=== PATIENT | male | born 1985 | race Caucasian/White ===

== ENCOUNTER 2017-10-24 09:56 | Emergency (ER) | payer SELFPAY ==
[2017-10-24 09:57] VITALS: BP 117/82; PULSE 85; RESP 17; TEMP 37.2; O2SAT 99; BMI 20.7
[2017-10-24 10:00] VITALS: O2SAT 100
--- NOTE | 2017-10-24 10:08 | RAD_ITS ---
STUDY: X-RAY - THORACIC SPINE REASON FOR EXAM: Male, 32 years old. Back pain due to a fall. TECHNIQUE: 3 view(s) of the thoracic spine were obtained. COMPARISON: None. FINDINGS: Normal kyphosis of the thoracic spine. There is no substantial scoliosis. Schmorl's nodes in the lower dorsal spine. Normal disc space heights. The soft tissue structures are unremarkable. RAD/Thoracic Spine 2 Views IMPRESSION: Schmorl's nodes in the lower dorsal spine. Electronically Signed: Frank Villa MD at 10:54 EST Tel [phone], Service support ,
[2017-10-24] MEDS: HYDROcodone Bitartrate/Apap 5/325 Tablet PO (10:15)
--- NOTE | 2017-10-24 10:25 | ED.VISSUMM ---
- ER Visit Summary Date of Service: 10/24/17 Chief Complaint: Fall, back pain History of Present Illness: The patient is a 32 M who presents after a fall. He fell off of a ladder approximately 10 feet yesterday. He states he broke his fall on the way down. But he landed on his back. He has pain in the left lower thoracic area. He denies loss of consciousness. He did not hit his head. He complains of pain in the left thoracic area. He has a previous back fracture in 2005. He took Tylenol without any relief. Physical Examination: Vital signs reviewed. HEENT exam reveals no trauma. Heart is regular. Lungs are clear. Abdomen is soft. Back exam reveals paraspinal and some mild tenderness in the lower thoracic area. There is no lumbar or cervical tenderness. His GCS is 15. Neurologic exam normal Test Results: Thoracic x-ray reveals Schmorl's nodes but no acute fractures Emergency Department Course and Treatment: Patient was treated with [place] here Treatment Plan: I will give the patient naproxen and Flexeril for home. He will keep ice on any areas that are sore. He will follow-up with his PCP Disposition: Discharge Impression: Thoracic contusion This note was generated with [employer] dictation software. It may contain incorrect words, spelling, and punctuation that were not noted in review of the chart prior to signing ED Disposition - Plan for ED Patient: Chief Complaint: Fall Referrals: Care Physician,No Primary [Primary Care Provider] -
--- NOTE | 2017-10-24 11:00 | ED.DEP ---
ED Disposition - Plan for ED Patient: Disposition: Home or Assisted Living Chief Complaint: Fall Instructions: ED Contusion Back Prescriptions: Naproxen [Naprosyn] 500 mg PO BID PRN #20 tab Cyclobenzaprine [Flexeril] 10 mg PO TID PRN #20 tab PRN Reason: Muscle Spasm Referrals: Care Physician,No Primary [Primary Care Provider] -
[2017-10-24 11:49] VITALS: BP 101/64; PULSE 72; RESP 16; O2SAT 98
== END 2017-10-24 11:50 | disposition home or self-care (01) ==
PROVIDERS: Emergency Provider Emergency Medicine
DX: S30.0XXA Contusion of lower back and pelvis, initial encounter (principal); W11.XXXA Fall on and from ladder, initial encounter; Y93.9 Activity, unspecified; Y92.9 Unspecified place or not applicable; Z72.0 Tobacco use
CPT/HCPCS: 72070; 99283

== ENCOUNTER 2023-09-18 11:25 | Emergency (ER) | payer MEDICAID, SELFPAY ==
[2023-09-18 11:27] VITALS: BP 120/88; PULSE 103; RESP 14; TEMP 38.8; O2SAT 96; BMI 24.2
--- NOTE | 2023-09-18 11:40 | MRI_ITS ---
STUDY: MRI LUMBAR SPINE WITHOUT CONTRAST REASON FOR EXAM: Male, 38 years old. Back pain w/ saddle anesthesia, rectal incontinence TECHNIQUE: Standardized fat and water weighted pulse sequences were obtained in the sagittal and axial planes. Noncontrast images obtained. Contrast: No contrast administered COMPARISON: None FINDINGS: Vertebral bodies and alignment. 1. Vertebral body height and alignment are maintained. No evidence of marrow edema or occult fracture. 2. Paraspinous soft tissue planes have normal appearance. Normal appearance of the muscular fascial planes of the erector spinae. 3. Normal appearance of the sacrum and sacroiliac joints. Intervertebral disks levels. T12-L1: Normal endplates. Normal disc height, hydration and morphology. Normal bilateral facet joints. Normal central canal and bilateral lateral recesses. Normal bilateral intervertebral neural foramina. L1-2: Normal endplates. Normal disc height, hydration and morphology. Normal bilateral facet joints. Normal central canal and bilateral lateral recesses. Normal bilateral intervertebral neural foramina. L2-3: Normal endplates. Normal disc height, hydration and morphology. Normal bilateral facet joints. Normal central canal and bilateral lateral recesses. Normal bilateral intervertebral neural foramina. L3-4: Normal endplates. Normal disc height, hydration and morphology. Normal bilateral facet joints. Normal central canal and bilateral lateral recesses. Normal bilateral intervertebral neural foramina. L4-5: Normal endplates. Normal disc height, hydration and morphology. There is mild facet hypertrophic change. Normal central canal and bilateral lateral recesses. Normal bilateral intervertebral neural foramina. L5-S1: Disc desiccation, mild loss of disc height. Broad-based posterior disc bulge with mild asymmetry greater on the RIGHT than LEFT with associated RIGHT annular tear. Small contained a RIGHT foraminal bulge/borderline protrusion without brandy nerve root impingement. Spinal cord: Normal appearance of the spinal cord and conus. Conus is located at L1. Cauda equina has normal appearance. No evidence of cord compression or edema. No intramedullary signal abnormality noted. MRI/Spine Lumbar (Routine) IMPRESSION: 1. There is desiccation and mild asymmetric RIGHT posterior lateral disc bulge/borderline protrusion and annular tear extending into the RIGHT neural foramen. No evidence canal stenosis or brandy nerve root impingement. 2. Remaining disc spaces are maintained. No canal stenosis, no cord or nerve root impingement. 3. Mild multilevel facet hypertrophic changes. 4. Normal appearance the spinal cord and conus. Electronically Signed: Bigg Mukherjee MD at 17:33 EST ,
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
[2023-09-18] MEDS: Acetaminophen 500 MG Tablet 1000 MG PO (11:51)
[2023-09-18 12:18] LABS: Absolute Lymphocyte Count 3.27 X10^3/uL (0.83-4.51); Absolute Neutrophil Count 3.1 X10^3/uL (2.0-7.7); Basophil# 0.02 X10^3/uL; Basophil% 0.3 % (0-1); Eosinophil# 0.16 X10^3/uL; Eosinophils% 2.3 % (0-5); Hematocrit 42.1 % (40-54); Lymphocyte # 3.27 X10^3/ul (0.83-4.51); Lymphocyte % 46.3 % (19-41); Mean Corp Hgb Conc 33.3 g/dL (32-36); Mean Corpuscular Hgb 32.4 pg (27.0-32.0); Mean Corpuscular Volume 97.5 fL (80-94); Mean Platelet Vol. 9.6 fl (6.2-12.0); Monocyte# 0.54 X10^3/uL; Monocyte% 7.6 % (0-10); NRBC Flagged by Analyzer 0 % (0-5); Neutrophil # 3.07 X10^3/uL (2.7-7.7); Neutrophil % 43.5 % (47-70); Platelet Count 270 K/mm3 (150-450); RBC Distribution Width CV 11.7 % (11.6-14.6); RBC Distribution Width SD 42.5 fl (35.1-43.9); Red Blood Count 4.32 M/mm3 (4.6-6.2); White Blood Count 7.1 K/mm3 (4.4-11.0)
[2023-09-18 12:19] LABS: Erythrocyte Sedimentation Rate 18 mm/hr (0-20)
[2023-09-18 12:43] LABS: Anion Gap 3 (5-15); BUN 22 mg/dL (7-18); BUN/Creat Ratio 17.6 RATIO (10-20); CRP < 2.90 mg/L (0.0-3.0); Calcium,Total 9.4 mg/dL (8.5-10.1); Chloride 103 mmol/L (98-107); Creatinine, Serum 1.25 mg/dL (0.70-1.30); EST Glomerular Filtration Rate 69 mL/min (>60); Est Glom Filt Rate - Afr Amer 83 mL/min (>60); Estimated Creatinine Clearance 70.38 ml/min; Glucose 80 mg/dL (74-106); Potassium 3.7 mmol/L (3.5-5.1); Sodium Level 139 mmol/L (136-145)
--- OUTSIDE RECORDS SUMMARY | 2023-09-18 12:48 | XMS RPT_ITS | CCD ---
Author Name Unknown Address [address] [place] [id number] Organization [facility] Care Team Providers Care Apiarist Name Role Phone Unavailable Primary Care Provider SUNI Linton Attending Unavailable Medications Completed/Discontinued Medications Medication Drug Class(es) Dates Sig (Normalized) Sig (Original) bictegravir 50 mg / emtricitabine 200 mg / tenofovir alafenamide 25 mg oral tablet (6 sources) Human Immunodeficiency Virus Nucleoside Analog Reverse Transcriptase Inhibitor Start: 05-11-2023 BIKTARVY 50-200-25 mg per tablet cefTRIAXone 500 mg injection (2 sources) Cephalosporin Antibacterial Start: 08-20-2023 End: 08-20-2023 cefTRIAXone 500 mg intramuscular injection (ROCEPHIN) Problems Problem Classification Problem Date Documented Da te Episodic/Chronic Genitourinary symptoms and ill-defined conditions (3 sources) Discharge from penis; Translations: [Urethral discharge, unspecified] Onset: 3 05-13-2023 Episodic HIV infection (2 sources) Asymptomatic human immunodeficiency virus [HIV] infection status; Translations: [HIV infection, asymptomatic (HCC)] Onset: 3 Chronic Immunizations and screening for infectious disease (4 sources) Patient encounter status; Translations: [Encounter for screening for infections with a predominantly sexual mode of transmission] Onset: 3 08-20-2023 Episodic Other gastrointestinal disorders (1 source) Mucus in stool; Translations: [Other fecal abnormalities] 08-20-2023 Episodic Other gastrointestinal disorders (1 source) Other fecal abnormalities; Translations: [Mucus in stool] Onset: 3 Episodic Substance-related disorders (1 source) Other stimulant abuse, uncomplicated; 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, continuous (HCC)] Onset: 3 Chronic Results Test Name Value Interpretation Reference Range Facil ity Vital Signs Date Time Vital Sign Value Performing Clinician Maddi giles 08-20-2023 14:00-0500 Body temperature 97.39 [degF] Suni Ball JIG AND FIXTURE BUILDER APPRENTICE.MOLD CLEANER Work Phone: [facility] 08-20-2023 14:00-0500 Body weight 68.27 kg Suni Ball JIG AND FIXTURE BUILDER APPRENTICE.MOLD CLEANER Work Phone: [facility] 08-20-2023 14:00-0500 Diastolic blood pressure 74 mm[Hg] Suni Ball JIG AND FIXTURE BUILDER APPRENTICE.MOLD CLEANER Work Phone: [facility] 08-20-2023 14:00-0500 Heart rate 107 /min Suni Ball JIG AND FIXTURE BUILDER APPRENTICE.MOLD CLEANER Work Phone: [facility] 08-20-2023 14:00-0500 SaO2% (BldA) [Mass fraction] 97 % Suni Ball JIG AND FIXTURE BUILDER APPRENTICE.MOLD CLEANER Work Phone: [facility] 08-20-2023 14:00-0500 Systolic blood pressure 116 mm[Hg] Suni Ball JIG AND FIXTURE BUILDER APPRENTICE.MOLD CLEANER Work Phone: [facility] 05-13-2023 12:48-0400 Body temperature 97.9 [degF] Lexx Pendlebury JIG AND FIXTURE BUILDER APPRENTICE.MOLD CLEANER Work Phone: [facility] 05-13-2023 12:48-0400 Body weight 64.86 kg Lexx Gallo JIG AND FIXTURE BUILDER APPRENTICE.MOLD CLEANER Work Phone: [facility] 05-13-2023 12:48-0400 Diastolic blood pressure 80 mm[Hg] Lexx [place] JIG AND FIXTURE BUILDER APPRENTICE.MOLD CLEANER Work Phone: [facility] 05-13-2023 12:48-0400 Heart rate 114 /min Lexx Sabino JIG AND FIXTURE BUILDER APPRENTICE.MOLD CLEANER Work Phone: [facility] 05-13-2023 12:48-0400 Respiratory rate 16 /min Lexx [place] JIG AND FIXTURE BUILDER APPRENTICE.MOLD CLEANER Work Phone: [facility] 05-13-2023 12:48-0400 SaO2% (BldA) [Mass fraction] 98 % Lexx Gallo JIG AND FIXTURE BUILDER APPRENTICE.MOLD CLEANER Work Phone: [facility] 05-13-2023 12:48-0400 Systolic blood pressure 110 mm[Hg] Lexx Gallo APRN.CNP Work Phone: [facility] Encounters Encounter Date Encounter Type Care Provider Facility Start: 09-06-2023 Telephone encounter Suni Pino walker APRN.CNP Work Phone: [facility] Procedures Date Procedure Procedure Detail Performing Clinician Start: 08-20-2023 Urnls dip stick/tabl et rgnt auto w/o microscopy [facility] Provider Start: 05-13-2023 Urnls dip stick/tabl et rgnt auto w/o microscopy [facility] Provider Plan of Treatment Date Care Activity Detail Author Start: 08-20-2023 End: 11-19-2023 Hepatitis B virus surface Ag [Presence] in Serum HEP B SURF AG SCRN Lab Routine Screening for STD (sexually transmitted disease) Expected: 08/20/2023, Expires: 11/19/2023 [facility] Work Phone: Payers Date Payer Category Payer Unknown PENDING 2023 Medicaid [employer] [place] [id number] 2023-Present [phone] [place] [address] Medicaid [id number] 2023 Unknown [id number] Social History Date Type Detail Facility [facility] unknown [facility] Start: 1985 Sex Assigned At Not on file [facility] Start: 05-13-2023 End: 08-20-2023 Gender identity Not on file [facility] Start: 05-13-2023 [facility] daily [facility] History of tobacco use Cigarette Smoker [facility] Start: 05-13-2023 End: 08-20-2023 Cigarettes smoked current (pack per day) - Reported 0.3 [facility] Start: 05-13-2023 Tobacco use and exposure Smoke less tobacco non-user [facility] Clinical Notes 04-02-2023 to 09-06-2023 Telephone Encounter - Suni Heath APRN.CNP - 09/06/2023 9:13 AM ESTTelephone Encounter - Mikki Carroll - 09/06/2023 9:00 AM ESTTelephone Encounter - Magaly Corrales APRN.CNP - 08/21/2023 5:42 PM EST Note Date & Type Note Facility 09-06-2023 Miscellaneous Notes Spoke with health dept. Notified them info has been fwd to patients ID doc. Health Dept has spoke to patient who denied any symptoms or concerns. Confirmed with HD number on file is patients correct [phone]. Pt to follow up with Dr West Cole ID at [facility]. Suni Heath APRN.CNP [place], with the [facility] Dept, stated they got patient's lab results for IGG, IGM and RPR. Said results typically require further testing and wants to know if any further testing was ordered. Please call him at [phone]. documented in this encounter [facility] 08-30-2023 Miscellaneous Notes Phone number in chart not working. Letter sent to patient to call office for test results. Also attempted to notify patients ID . Will fax results over to [phone] Suni Heath APRN.CNP documented in this encounter [facility] 08-21-2023 Miscellaneous Notes Birthday verified with patient over the phone. Aware of the below information with all questions answered. Negative gonorrhea and chlamydia. Patient is upset that he is not positive for gonorrhea, states this is concerning! Patient was hoping to be positive as he was having symptoms. Advised to make a follow up with primary care and urology as he needs more of a workup than what is offered in [facility]. documented in this encounter [facility] 08-20-2023 Note HNO ID: [id number] Author: Lexis Mac RN Service: ? Author Type: Registered Nurse Type: Progress Notes Filed: 08/20/2023 2:59 PM Note Text: Reviewed CAM order with a second caregiver for Rocephin injection. Reconstituted with 1 ml 1% lidocaine HCl. Verified patient's identity by stated name and date of . Verified NKDA. Administered injection IM to R dorsoglut. Patient tolerated well. Lexis Mac RN [facility] 08-20-2023 Note HNO ID: [id number] Author: Suni Heath APRN.JESS Service: ? Author Type: Nurse Practitioner Type: Progress Notes Filed: 08/20/2023 2:59 PM Note Text: This note was created using Vaccibodyriter. Subjective Teodoro Mcfarland is a 38 year old male. HPI by patient: Teodoro is a 38 year old presenting to the office with the complaint of exposure gonorrhea. Received a call today that he was exposed to someone with gonorrhea. Now having penile discharge and mucous in his stool Started approximately mid last week he started noticing some discomfort in his bowels. The discharge from his penis is just beginning Denies any other concerns Covid Immunization Dates Overdue - Covid-19 Vaccine (1) Never done No completion, postpone, frequency change, or communication history exists for this topic. ALLERGIES No Known Allergies No family history on file. Social History Tobacco Use Smoking status: Every Day Packs/day: .25 Types: Cigarettes Smokeless tobacco: Never Review of Systems Constitutional: Negative for chills and fever. Gastrointestinal: Negative for abdominal pain, nausea and vomiting. Mucous in his stool Genitourinary: Positive for penile discharge and penile pain. Negative for difficulty urinating, dysuria, flank pain, frequency, hematuria, scrotal swelling, testicular pain and urgency. Allergic/Immunologic: Negative for immunocompromised state. Objective BP 116/74 Pulse 107 Temp 36.3 ?C (97.4 ?F) Wt 68.3 kg (150 lb 8 oz) SpO2 97% Physical Exam Vitals and nursing note reviewed. Constitutional: Appearance: He is well-developed. Cardiovascular: Rate and Rhythm: Normal rate and regular rhythm. Heart sounds: Normal heart sounds. Pulmonary: Effort: Pulmonary effort is normal. Breath sounds: Normal breath sounds. Abdominal: General: Bowel sounds are normal. Palpations: Abdomen is soft. Tenderness: There is no abdominal tenderness. Skin: General: Skin is warm and dry. Neurological: Mental Status: He is alert and oriented to person, place, and time. Assessment and Plan ASSESSMENT/PLAN: 1. Drainage from penis - ICD9: 788.7, ICD10: R36.9 (primary diagnosis) - GONORRHEA/CHLAMYDIA NAAT 2. Mucus in stool - ICD9: 792.1, ICD10: R19.5- Likely r/t gonorrhea, if it does not resolved with rocephin please follow up with GI - CONSULT TO GASTROENTEROLOGY 3. Screening for STD (sexually transmitted disease) - ICD9: V74.5, ICD10: Z11.3 - SYPHILIS TOTAL W/REFLEX - HEPATITIS C ANTIBODY IA WITH CONFIRMATION - HEP B SURF AG SCRN - GONORRHEA/CHLAMYDIA NAAT - HERPES SIMPLEX TYPE 1 AND 2 IG 4. Exposure to gonorrhea - ICD9: V01.6, ICD10: Z20.2 - CEFTRIAXONE 500 MG SOLUTION FOR INJECTION Suni Heath APRN.CNP Medical Decision Making: Problems: Moderate: New problem with uncertain prognosis Data: Unique test(s) ordered: 3+ Risk: Moderate: Drug management Medical Decision Making Level: 4 - Moderate [facility] 08-20-2023 History of Presen t illness Narrative Reviewed CAM order with a second caregiver for Rocephin injection. Reconstituted with 1 ml 1% lidocaine HCl. Verified patient's identity by stated name and date of . Verified NKDA. Administered injection IM to R dorsoglut. Patient tolerated well. Lexis Mac RN This note was created using Vaccibodyriter. Subjective Teodoro Mcfarland is a 38 year old male. HPI by patient: Teodoro is a 38 year old presenting to the office with the complaint of exposure gonorrhea. Received a call today that he was exposed to someone with gonorrhea. Now having penile discharge and mucous in his stool Started approximately mid last week he started noticing some discomfort in his bowels. The discharge from his penis is just beginning Denies any other concerns Covid Immunization Dates Overdue - Covid-19 Vaccine (1) Never done No completion, postpone, frequency change, or communication history exists for this topic. ALLERGIES No Known Allergies No family history on file. Social History Tobacco Use Smoking status: Every Day Packs/day: .25 Types: Cigarettes Smokeless tobacco: Never Review of Systems Constitutional: Negative for chills and fever. Gastrointestinal: Negative for abdominal pain, nausea and vomiting. Mucous in his stool Genitourinary: Positive for penile discharge and penile pain. Negative for difficulty urinating, dysuria, flank pain, frequency, hematuria, scrotal swelling, testicular pain and urgency. Allergic/Immunologic: Negative for immunocompromised state. Objective BP 116/74 Pulse 107 Temp 36.3 C (97.4 F) Wt 68.3 kg (150 lb 8 oz) SpO2 97% Physical Exam Vitals and nursing note reviewed. Constitutional: Appearance: He is well-developed. Cardiovascular: Rate and Rhythm: Normal rate and regular rhythm. Heart sounds: Normal heart sounds. Pulmonary: Effort: Pulmonary effort is normal. Breath sounds: Normal breath sounds. Abdominal: General: Bowel sounds are normal. Palpations: Abdomen is soft. Tenderness: There is no abdominal tenderness. Skin: General: Skin is warm and dry. Neurological: Mental Status: He is alert and oriented to person, place, and time. Assessment and Plan ASSESSMENT/PLAN: 1. Drainage from penis - ICD9: 788.7, ICD10: R36.9 (primary diagnosis) - GONORRHEA/CHLAMYDIA NAAT 2. Mucus in stool - ICD9: 792.1, ICD10: R19.5- Likely r/t gonorrhea, if it does not resolved with rocephin please follow up with GI - CONSULT TO GASTROENTEROLOGY 3. Screening for STD (sexually transmitted disease) - ICD9: V74.5, ICD10: Z11.3 - SYPHILIS TOTAL W/REFLEX - HEPATITIS C ANTIBODY IA WITH CONFIRMATION - HEP B SURF AG SCRN - GONORRHEA/CHLAMYDIA NAAT - HERPES SIMPLEX TYPE 1 AND 2 IG 4. Exposure to gonorrhea - ICD9: V01.6, ICD10: Z20.2 - CEFTRIAXONE 500 MG SOLUTION FOR INJECTION Suni Heath APRN.CNP Medical Decision Making: Problems: Moderate: New problem with uncertain prognosis Data: Unique test(s) ordered: 3+ Risk: Moderate: Drug management Medical Decision Making Level: 4 - Moderate documented in this encounter [facility] 08-20-2023 Instructions Suni Heath APRN.CNP - 08/20/2023 2:28 PM EST [facility] PATIENT INFO CLAMYDIA AND GONORRHEA What are chlamydia and gonorrhea? - Chlamydia and gonorrhea are two different infections that you can catch during sex. They cause similar symptoms. These infections can affect the: Sex organs Urethra (the tube that carries urine out of the body) Throat Rectum or anus (especially in men who have sex with men) Infections that you can catch during sex are called sexually transmitted infections. What are the symptoms of chlamydia and gonorrhea? - Often these infections cause no symptoms. But when they do, the symptoms are different for men than for women. In women, the symptoms of both infections include: Vaginal discharge Abnormal vaginal bleeding or spotting Belly pain Pain during sex Burning or pain during urination In addition to the symptoms listed above, in women gonorrhea can also cause itching of the vagina or anus. In men, the symptoms of both infections include: Burning or pain during urination Discharge from the penis Pain, swelling, or tenderness of the testicles Are there tests for chlamydia and gonorrhea? - Yes. Your doctor or nurse can test you for these infections using a: Urine sample Sample from inside the vagina, if you are a woman Should I see a doctor or nurse? - Yes, you should see a doctor or nurse if you have any of the symptoms listed above. You should also see a doctor or nurse if any of your sexual partners have been diagnosed with either infection. Even if you have no symptoms, you could be infected. Your doctor might want to test you for sexually transmitted infections now and in the future. How are chlamydia and gonorrhea treated? - The main treatment for both infections is antibiotics. The antibiotic for gonorrhea often comes in a single shot. The antibiotic for chlamydia comes in a pill. Treatment might involve taking a single pill, or it might involve taking medicine for a whole week. No matter what, make sure you take all the pills your doctor or nurse prescribes. Otherwise the infection might come back. If you learn that you have chlamydia or gonorrhea, you should tell all the people you have had sex with recently. They might also be infected (even if they have no symptoms) and need treatment. What happens if I don't get treated? - Leaving chlamydia or gonorrhea untreated can cause joint terminal attack controller problems for both men and women. In women it can lead to a problem called pelvic inflammatory disease, or PID. PID can cause pain and make it hard to get . In men and women, leaving gonorrhea untreated can lead to joint infections and arthritis. It can also increase the risk of becoming infected with HIV. Can chlamydia and gonorrhea prevented? - You can reduce your chances of getting chlamydia or gonorrhea by: Using a latex condom every time you have sex Avoiding sex when you or your partner has any symptoms that could be caused by an infection (such as itching, discharge, or pain with urination) Not having sex GONORRHEA Gonorrhea, also called clap or drip, is a common sexually transmitted disease (STD). Gonorrhea is a serious infection that is caught by having sex with an infected person. Both men and women can get gonorrhea. The infection is easily spread and most often occurs in people who have many sex partners. What are the symptoms of gonorrhea? In women Most women do not have symptoms. When symptoms are present, they often include: Unusual discharge (fluid) from the vagina (may be white or yellow) Lower abdominal or pelvic pain Pain or burning when passing urine Bleeding between periods In men White or yellow discharge from the penis Pain or burning when passing urine (the burning sensation can be severe) What causes gonorrhea? Gonorrhea is a bacterial infection. A person can become infected when the bacteria enter any opening in the body, including the penis, anus, vagina, or mouth. The most common site of infection in women is the cervix, the opening from the vagina to the womb. In men, the infection most often starts in the urethra, the tube that carries urine from the bladder to outside the body. How can I know if I have gonorrhea? If you think you have gonorrhea, or any STD, contact your health care provider. He or she will examine you and perform tests, if necessary, to determine if you have an STD. As part of the examination for gonorrhea, women are often given a pelvic exam. The doctor will take a sample of fluid from the cervix for testing; in men, the doctor will take a sample of fluid from the penis. You may also be given a throat or anal culture to see if the infection is in your throat or anus. You may need to wait for several days for your test results to come back from the lab. Gonorrhea and chlamydia, another common STD, often occur together, so you may be tested and treated for both. Can gonorrhea be cured? Yes. Gonorrhea can be treated and cured. How is gonorrhea treated? Gonorrhea is treated with antibiotics, a medication taken by mouth or as shots. Since you and your sex partner are both infected, both of you must be treated. Continue to take your medication, even if the symptoms go away. Also, never take someone else's medication to treat your illness. By doing so, you may make the infection more difficult to treat. You should also: Tell anyone you have had sex with in the last three months that you are infected. This step is especially important because gonorrhea may have no symptoms. Women, especially, may not have symptoms and may not seek testing or treatment unless alerted by their sex partner. Wait until you have taken all of your medicine before having sex again. Always use condoms when having sex. What can happen if gonorrhea is not treated? In women Gonorrhea can spread to other reproductive organs, including the uterus and Fallopian tubes, and cause pelvic inflammatory disease (PID). PID can cause infertility and tubal pregnancies (which can lead to of the mother and the unborn child). Gonorrhea can spread to other parts of the body and lead to other medical problems, including swollen and painful joints and damage to heart valves and the brain. In men Untreated gonorrhea can cause: Scars in the urethra Inflammation of the testicles Sterility Gonorrhea can spread to other parts of the body and lead to other medical problems, including swollen and painful joints and damage to heart valves and the brain Can I get gonorrhea more than once? Yes. How can I protect myself from gonorrhea? Do not have sex with someone you know is infected. Always use a condom during sex. Also use a spermicide containing nonoxynol-9. Have sex with only one partner and get tested. Where can I learn more? CDC National STD Hotline: Copyright 3982-6809 [facility]. All rights reserved This information is provided by the [facility] and is not intended to replace the medical advice of your doctor or health care provider. Please consult your health care provider for advice about a specific medical condition. For additional written health information, please contact the Health Information Center at the [facility] or toll-free extension [phone]. This document was last reviewed on: 2002 index#[id number] documented in this encounter [facility] 05-15-2023 Miscellaneous Notes Patient given results and verbalized understanding of instructions given. Nelli Paula Attempted to call pt, voicemail full. Will try again later. Yamila Joseph MA Please notify that patient was positive for Gonorrhoea, and was treated appropriately with the shot received in office. Will call when other labs resulted. No intercourse for 7 days. Keep f/u appointments as discussed at visit. documented in this encounter [facility] 05-13-2023 Note HNO ID: [id number] Author: Lexx Gallo APRN.CNP Service: ? Author Type: Nurse Practitioner Type: Progress Notes Filed: 05/13/2023 2:01 PM Note Text: Subjective HPI Nontoxic-appearing male presents urgent care chief complaint concerns for STDs. Duration of symptoms last few days. Associated symptoms penile discharge. Presents today for evaluation. Denies history of of gonorrhea chlamydia in the past. Recently diagnosed with HIV. Is under the care of infectious disease. States he is sexually active with 1 male partner. Does not use protection. Does have mild dysuria. Denies any new rectal pain or drainage. Denies any testicular pain penile discomfort or testicular swelling or scrotal swelling. Past medical history prescription medication use allergies reviewed. .Patient presents with: STD: testing No past medical history on file. No past surgical history on file. ALLERGIES Patient has no known allergies. MEDICATIONS BIKTARVY 50-200-25 mg per tablet No family history on file. Social History Tobacco Use Smoking status: Every Day Packs/day: .25 Types: Cigarettes Smokeless tobacco: Never BP 110/80 Pulse 114 Temp 36.6 ?C (97.9 ?F) Resp 16 Wt 64.9 kg (143 lb) SpO2 98% Hr 86 Review of Systems Constitutional: Negative for chills, fever and malaise/fatigue. HENT: Negative for congestion, ear discharge, ear pain, sinus pain and sore throat. Eyes: Negative for blurred vision, pain, discharge and redness. Respiratory: Negative for cough, hemoptysis, sputum production, shortness of breath, wheezing and stridor. Cardiovascular: Negative for chest pain. Gastrointestinal: Negative for abdominal pain, diarrhea, nausea and vomiting. Genitourinary: Positive for dysuria. Negative for flank pain, frequency, hematuria and urgency. Musculoskeletal: Negative for myalgias. Skin: Negative for itching and rash. Neurological: Negative for dizziness and headaches. Objective Physical Exam Constitutional: General: He is not in acute distress. Appearance: He is not toxic-appearing. HENT: Head: Normocephalic. Nose: Nose normal. Eyes: Pupils: Pupils are equal, round, and reactive to light. Cardiovascular: Rate and Rhythm: Normal rate. Pulmonary: Effort: Pulmonary effort is normal. No respiratory distress. Genitourinary: Pubic Area: No rash. Penis: Circumcised. Discharge present. No erythema, tenderness or swelling. Testes: Normal. Right: Tenderness not present. Left: Tenderness not present. Musculoskeletal: Cervical back: Normal range of motion. Lymphadenopathy: Lower Body: No right inguinal adenopathy. No left inguinal adenopathy. Skin: General: Skin is warm and dry. Neurological: General: No focal deficit present. Mental Status: He is alert. ASSESSMENT/PLAN: 1. Penile discharge - ICD9: 788.7, ICD10: R36.9 - CEFTRIAXONE 500 MG SOLUTION FOR INJECTION - GONORRHEA/CHLAMYDIA NAAT - URINE OB DIP B/O Urine positive for small amount of leukocytes. Will not treat at this time. Urine culture ordered. Results pending. Gonorrhea, chlamydia test will be obtained today. With patient's penile drainage patient will be treated for gonorrhea today in office with 500 mg Rocephin IM. Treat accordingly to GC test results. Red flags for prompt elevation discussed. Supportive therapies discussed. Follow-up with infectious disease as scheduled. Be seen urgent care or ED for any new worsening or symptoms lasting along anticipated. Patient verbalized understand agrees with plan of care. Lexx Gallo APRN.[facility] 05-13-2023 History of Presen t illness Narrative Subjective HPI Nontoxic-appearing male presents urgent care chief complaint concerns for STDs. Duration of symptoms last few days. Associated symptoms penile discharge. Presents today for evaluation. Denies history of of gonorrhea chlamydia in the past. Recently diagnosed with HIV. Is under the care of infectious disease. States he is sexually active with 1 male partner. Does not use protection. Does have mild dysuria. Denies any new rectal pain or drainage. Denies any testicular pain penile discomfort or testicular swelling or scrotal swelling. Past medical history prescription medication use allergies reviewed. .Patient presents with: STD: testing No past medical history on file. No past surgical history on file. ALLERGIES Patient has no known allergies. MEDICATIONS BIKTARVY 50-200-25 mg per tablet No family history on file. Social History Tobacco Use Smoking status: Every Day Packs/day: .25 Types: Cigarettes Smokeless tobacco: Never BP 110/80 Pulse 114 Temp 36.6 C (97.9 F) Resp 16 Wt 64.9 kg (143 lb) SpO2 98% Hr 86 Review of Systems Constitutional: Negative for chills, fever and malaise/fatigue. HENT: Negative for congestion, ear discharge, ear pain, sinus pain and sore throat. Eyes: Negative for blurred vision, pain, discharge and redness. Respiratory: Negative for cough, hemoptysis, sputum production, shortness of breath, wheezing and stridor. Cardiovascular: Negative for chest pain. Gastrointestinal: Negative for abdominal pain, diarrhea, nausea and vomiting. Genitourinary: Positive for dysuria. Negative for flank pain, frequency, hematuria and urgency. Musculoskeletal: Negative for myalgias. Skin: Negative for itching and rash. Neurological: Negative for dizziness and headaches. Objective Physical Exam Constitutional: General: He is not in acute distress. Appearance: He is not toxic-appearing. HENT: Head: Normocephalic. Nose: Nose normal. Eyes: Pupils: Pupils are equal, round, and reactive to light. Cardiovascular: Rate and Rhythm: Normal rate. Pulmonary: Effort: Pulmonary effort is normal. No respiratory distress. Genitourinary: Pubic Area: No rash. Penis: Circumcised. Discharge present. No erythema, tenderness or swelling. Testes: Normal. Right: Tenderness not present. Left: Tenderness not present. Musculoskeletal: Cervical back: Normal range of motion. Lymphadenopathy: Lower Body: No right inguinal adenopathy. No left inguinal adenopathy. Skin: General: Skin is warm and dry. Neurological: General: No focal deficit present. Mental Status: He is alert. ASSESSMENT/PLAN: 1. Penile discharge - ICD9: 788.7, ICD10: R36.9 - CEFTRIAXONE 500 MG SOLUTION FOR INJECTION - GONORRHEA/CHLAMYDIA NAAT - URINE OB DIP B/O Urine positive for small amount of leukocytes. Will not treat at this time. Urine culture ordered. Results pending. Gonorrhea, chlamydia test will be obtained today. With patient's penile drainage patient will be treated for gonorrhea today in office with 500 mg Rocephin IM. Treat accordingly to GC test results. Red flags for prompt elevation discussed. Supportive therapies discussed. Follow-up with infectious disease as scheduled. Be seen urgent care or ED for any new worsening or symptoms lasting along anticipated. Patient verbalized understand agrees with plan of care. Lexx Gallo APRN.[facility] documented in this encounter [facility] 04-02-2023 Miscellaneous Notes Summary: Results Attempt /- I called the pt to discuss recent posiitive HIV results, but I was unable to reach him. The phone number provided made an odd noise then went to a busy signal. I will try again in hopes I am able to reach him. documented in this encounter [facility] Drainage from penis- Primary Mucus in stool Nonspecific abnormal finding in stool contents Screening for STD (sexually transmitted disease) Screening examination for venereal disease Exposure to gonorrhea Contact with or exposure to venereal diseases documented in this encounter [facility] Medications Administered Section Inactive Administered Medications - up to 3 most recent administrations Medication Order MAR Action Action Date Dose Rate Site cefTRIAXone 500 mg intramuscular injection (ROCEPHIN) 500 mg, INTRAMUSCULAR, ONCE, 1 dose, On 05/13/23 at 1330, Please document the antimicrobial indication: Empiric Given 05/13/2023 2:06 PM EDT 500 mg Buttocks, Right Inactive Administered Medications - up to 3 most recent administrations Medication Order MAR Action Action Date Dose Rate Site cefTRIAXone 500 mg intramuscular injection (ROCEPHIN) 500 mg, INTRAMUSCULAR, ONCE, 1 dose, On 08/20/23 at 1500, Antimicrobial indication: Empiric Given 08/20/2023 2:52 PM EST 500 mg Buttocks, Right Reason for Referral Specialty Diagnoses / Procedures Referred By Katelynn t Referred To Contact Gastroenterology Diagnoses Mucus in stool Procedures CONSULT TO GASTROENTEROLOGY OFFICE/OUTPATIENT [facility] 60-74 MINUTES Suni Heath APRN.[employer] [address] [place] [address] Referral ID Status Reason Start Date Expiration Date Visits Requested Visits Authorized [id number] Pending Review PCP Requested Referral 08/20/2023 08/19/2024 1 1 Summary Purpose Family History No Family History Records Found Advance Directives No Advanced Directives Records Found Additional Source Comments Source Comments (unrecognize d section and content) In the event this informatio n is protected by the Federal Confidentiality of Alcohol and Drug Abuse Patient Records regulations: The Federal rules restrict any use of the information to criminally investigate or prosecute any alcohol or drug abuse patient.[facility] the event this information is protected by the Federal Confidentiality of Alcohol and Drug Abuse Patient Records regulations: The Federal rules restrict any use of the information to criminally investigate or prosecute any alcohol or drug abuse patient.[facility] the event this information is protected by the Federal Confidentiality of Alcohol and Drug Abuse Patient Records regulations: The Federal rules restrict any use of the information to criminally investigate or prosecute any alcohol or drug abuse patient.[facility] the event this information is protected by the Federal Confidentiality of Alcohol and Drug Abuse Patient Records regulations: The Federal rules restrict any use of the information to criminally investigate or prosecute any alcohol or drug abuse patient.[facility] the event this information is protected by the Federal Confidentiality of Alcohol and Drug Abuse Patient Records regulations: The Federal rules restrict any use of the information to criminally investigate or prosecute any alcohol or drug abuse patient.[facility] the event this information is protected by the Federal Confidentiality of Alcohol and Drug Abuse Patient Records regulations: The Federal rules restrict any use of the information to criminally investigate or prosecute any alcohol or drug abuse patient.[facility] the event this information is protected by the Federal Confidentiality of Alcohol and Drug Abuse Patient Records regulations: The Federal rules restrict any use of the information to criminally investigate or prosecute any alcohol or drug abuse patient.[facility] Reason for Visit (unrecogniz ed section and content) Reason Comments STD testing Reason Comments Results Reason Comments STD Sxs started mucus in stool, frequency of urination and discharge from penis, Reason Comments Question about lab results Results (unrecognized sect ion and content) No Status Records Found INFORMATION SOURCE (unrecogn ized section and content) FOR RECORDS PERTAINING TO PATIENTS WHO ARE OR HAVE BEEN ENROLLED IN A CHEMICAL DEPENDENCY/SUBSTANCEABUSE PROGRAM, SOME INFORMATION MAY BE OMITTED. This clinical summary was aggregated from multiple sources. Caution should be exercised in using it in the provision of clinical care. This summary normalizes information from multiple sources, and as a consequence, information in this document may materially change the coding, format and clinical context of patient data. In addition, data may be omitted in some cases. CLINICAL DECISIONS SHOULD BE BASED ON THE PRIMARY CLINICAL RECORDS. [facility] [employer] [facility]. provides no warranty or guarantee of the accuracy or completeness of information in this document.
--- NOTE | 2023-09-18 12:57 | RAD_ITS ---
STUDY: X-RAY - ORBITS REASON FOR EXAM: Male, 38 years old. FOR MRI CLEARANCE TECHNIQUE: 2 view(s) of the orbits were obtained. COMPARISON: None. FINDINGS: Normal bilateral orbits without a metallic orbital foreign body. Normal visualized facial bones. Normal paranasal sinuses. The soft tissue structures are unremarkable. RAD/Orbits for Foreign Body IMPRESSION: No demonstrated metallic orbital foreign body. The patient is cleared for an MRI examination. Electronically Signed: Sanjeev Flores MD at 15:02 EST ,
[2023-09-18 15:54] VITALS: PULSE 92; RESP 16; O2SAT 100
== END 2023-09-18 18:38 | disposition home or self-care (01) ==
PROVIDERS: Emergency Provider Emergency Medicine; Visit Provider Emergency Medicine
DX: M51.27 Other intervertebral disc displacement, lumbosacral region (principal); G89.29 Other chronic pain; R50.9 Fever, unspecified; F17.210 Nicotine dependence, cigarettes, uncomplicated
CPT/HCPCS: 70030; 72148; 80048; 85025; 85652; 86140; 87040; 87811; 99282; A4216